=== PATIENT | female | born 1970 | race Caucasian/White ===

== ENCOUNTER → 2016-07-28 | Outpatient (CLI) | payer OTHER | LOC: KOH-I 14:30 | DX: R51 Headache (principal); R42 Dizziness and giddiness; R43.9 Unspecified disturbances of smell and taste; J34.89 Other specified disorders of nose and nasal sinuses | CPT/HCPCS: 70551 ==

== ENCOUNTER → 2021-03-17 | Outpatient (CLI) | payer OTHER | LOC: SLEEP 21:30 | DX: R53.83 Other fatigue (principal); G47.33 Obstructive sleep apnea (adult) (pediatric); G47.61 Periodic limb movement disorder | CPT/HCPCS: 95810 ==

== ENCOUNTER 2021-05-19 09:36 | Emergency (ER) | payer OTHER ==
[2021-05-19 11:01] LABS: HEMOGLOBIN 13.6 gm/dl (12.3-15.3); RED BLOOD COUNT 4.53 M/UL (4.00-5.10); WHITE BLOOD COUNT 6.9 K/UL (4.5-11.0)
[2021-05-19 11:34] LABS: BUN/CREATININE RATIO 12 (0-10)
== END 2021-05-19 12:03 | disposition home or self-care (01) ==
LOC: ER1 09:36
PROVIDERS: Student in an Organized Health Care Education/Training Program
DX: U07.1 COVID-19 (principal); I10 Essential (primary) hypertension; E78.5 Hyperlipidemia, unspecified
CPT/HCPCS: 71045; 80048; 85025; 99283; U0002

== ENCOUNTER → 2021-05-20 | Outpatient (CLI) | payer OTHER ==
[~2021-05-20] VITALS: Ht 162.6 cm; Wt 93.0 kg
== END ==
LOC: EROP 12:35
DX: U07.1 COVID-19 (principal); Z23 Encounter for immunization; I10 Essential (primary) hypertension
CPT/HCPCS: M0247; Q0247